=== PATIENT | female | born 1980 | race Caucasian/White ===

== ENCOUNTER 2024-12-02 04:34 | Emergency (ER) | payer BC ==
[2024-12-02] MEDS: Ondansetron 4 MG/2 ML SDV IVPUSH ONE (05:08)
[2024-12-02] MEDS: Ketamine 200 MG/20 ML MDV IVPUSH ONE (05:19)
[2024-12-02] MEDS: Midazolam 1 MG/ML 2 ML SDV IVPUSH ONE (05:19)
[2024-12-02] MEDS: HYDROmorphone 1 MG/ML Syringe ONE (05:23)
[2024-12-02] MEDS: HYDROmorphone 1 MG/ML Syringe IVPUSH ONE ×3 (05:23→07:55)
[2024-12-02] MEDS ORDERED: Naloxone 0.4 MG/ML SDV IVPUSH PRN (07:53)
== END 2024-12-02 08:25 ==
LOC: KA.ED 04:34
DX: S82.841A Displaced bimalleolar fracture of right lower leg, initial encounter for closed fracture (principal); S82.831A Other fracture of upper and lower end of right fibula, initial encounter for closed fracture; S93.04XA Dislocation of right ankle joint, initial encounter; Z79.899 Other long term (current) drug therapy; X50.1XXA Overexertion from prolonged static or awkward postures, initial encounter
CPT/HCPCS: 27810; 73600-RT; 73610-RT; 96374; 96375; 96376; 99285-25; J1171; J2250; J2405; J3490